=== PATIENT | female | born 1990 | race Hispanic/Latino ===

== ENCOUNTER 2022-04-30 03:54 | Emergency (ER) | payer OTHER ==
[~2022-04-30] VITALS: Ht 162.6 cm; Wt 72.1 kg
[2022-04-30] MEDS ORDERED: KETOROLAC TROMETHAMINE 10 MG TAB PO ONE (04:30)
[2022-04-30] MEDS ORDERED: ONDANSETRON HCL 4 MG ORAL DISINTEGRATING TAB PO ONE (04:30)
[2022-04-30] MEDS ORDERED: KETOROLAC TROMETHAMINE 60 MG/2 ML VIAL IM ONE (04:30)
[2022-04-30] MEDS ORDERED: CLARITIN-D 241 EACH PO (04:32)
[2022-04-30] MEDS ORDERED: ONDANSETRON ODT4 MG PO (04:32)
[2022-04-30] MEDS ORDERED: IBUPROFEN800 MG PO (04:32)
[2022-04-30] MEDS ORDERED: KETOROLAC TROMETHAMINE 60 MG/2 ML VIAL ONE (04:39)
[2022-04-30] MEDS ORDERED: ONDANSETRON HCL 4 MG ORAL DISINTEGRATING TAB ONE (04:39)
[2022-04-30 04:40] VITALS: BP 135/96
[2022-04-30] MEDS ORDERED: IBUPROFEN 400 MG TAB ONE (04:45)
== END 2022-04-30 04:40 | disposition home or self-care (01) ==
LOC: FSED 04:22
DX: R51.9 Headache, unspecified (principal); J01.10 Acute frontal sinusitis, unspecified; F41.9 Anxiety disorder, unspecified; F17.210 Nicotine dependence, cigarettes, uncomplicated
CPT/HCPCS: 99282; J1885; Q0162